=== PATIENT | female | born 1930 | race Caucasian/White ===

== ENCOUNTER 2019-07-15 16:30 | Observation (INO) ==
[2019-07-15 17:43] LABS: BASO# 0.01 X1000 (0.0-0.2); BASO% 0.2 % (0.0-0.8); EOS% 5.7 % (0.0-10.0); HEMATOCRIT 28.8 % (37.0-47.0); HEMOGLOBIN 8.9 g/dL (12.0-16.0); IMM GRAN# 0.08 X1000 (0.0-0.04); IMM GRAN% 1.5 % (0.0-0.5); LYMPH# 1.62 X1000 (1.2-3.4); MCH 30.4 PG (27-31); MCHC 30.9 g/dL (33-37); MCV 98.3 FL (81-99); MONO# 0.59 X1000 (0.11-0.59); MONO% 11.3 % (1.7-9.3); NEUT# 2.63 X1000 (1.4-6.5); NEUT% 50.3 % (42.2-75.2); PLT 277 X1000 (130-400); RBC 2.93 XMIL (4.2-5.4); RDW 14.2 % (11.5-14.5); WBC 5.23 X1000 (4.8-10.8)
[2019-07-15 17:47] LABS: URINE SOURCE CATH
--- NOTE | 2019-07-15 17:52 | Diag Imaging Result Doc PS360 ---
EXAM: CHEST-PORTABLE - 07/15/2019 HISTORY: confusion TECHNIQUE: Portable chest COMPARISON: 08/25/2018 FINDINGS: Heart size is normal. Inspiration is mildly shallow. There are stable left lower lung granuloma and calcified left hilar lymph nodes from old granulomatous disease. Lungs otherwise appear clear. IMPRESSION: Mildly shallow inspiration. No other evidence of acute disease. Electronically signed by Qamar Cruz 07/15/2019 5:49 PM
[2019-07-15 17:54] LABS: BILIRUBIN URINE NEGATIVE (NEGATIVE); BLOOD URINE NEGATIVE (NEGATIVE); CLARITY CLEAR (CLEAR); COLOR YELLOW; GLUCOSE URINE NEGATIVE (NEGATIVE); KETONE URINE 1+(Small) mg/dL (NEGATIVE); LEUKOCYTES URINE NEGATIVE (NEGATIVE); NITRITE URINE NEGATIVE (NEGATIVE); PROTEIN URINE NEGATIVE (NEGATIVE); UROBILINOGEN URINE NORMAL
[2019-07-15 17:54] LABS: AGAP 13; ALBUMIN 3.8 g/dL (3.5-5.0); ALKALINE PHOSPHATASE 55 U/L (32-104); BUN 14 mg/dL (8-22); CALCIUM 9.1 mg/dL (8.8-10.2); CHLORIDE 109 mmol/L (98-107); COSMO 279; CREATININE 1.2 mg/dL (0.5-0.9); ESTIMATED GFR 42; GLUCOSE 85 mg/dL (70-104); GOT 23 U/L (10-30); GPT 16 U/L (10-36); SODIUM 140 mmol/L (136-145); TCO2 19 mmol/L (25-35); TOTAL BILIRUBIN < 0.15 mg/dL (0.20-1.00); TOTAL PROTEIN 6.1 g/dL (6.3-8.3)
--- NOTE | 2019-07-15 18:34 | PROVIDER DOCUMENTATION ---
This chart was entered by Liz Santana Scribe, acting as scribe for Clyde Byrd MD. HPI-General Adult - General Chief Complaint: Abnormal Lab[s] Stated Complaint: Renal Failure from [facility] Time Seen by Provider: 07/15/19 16:49 Source: patient, EMS Allergies/Adverse Reactions: Patient Allergies Allergy/AdvReac Type Severity Reaction Status Date / Time nitrofurantoin Allergy Unknown Verified 01/16/18 10:12 [From Macrobid] cephalexin [From Keflex] AdvReac Intermediate NAUSEA Verified 01/16/18 10:12 citalopram AdvReac Unknown Verified 12/30/18 14:09 niacin AdvReac Unknown Verified 12/30/18 14:09 NSAIDS (Non-Steroidal AdvReac Unknown Verified 12/30/18 14:09 Anti-Inflamma simvastatin [From Zocor] AdvReac Unknown Verified 12/30/18 14:09 Home Medications: Home Medication List Medication Instructions Recorded Confirmed Last Taken Type Acetaminophen with Codeine 1 ea PO Q6HR PRN #14 tab 01/16/18 Unknown Rx [Tylenol with Codeine #3] Amlodipine Besylate/Benazepril 1 cap PO DAILY 01/16/18 01/16/18 Unknown History [Amlodipine-Benazepril 10-20 mg] Donepezil HCl 10 mg PO QHS 01/16/18 01/16/18 Unknown History Gemfibrozil [Lopid] 600 mg PO BID 01/16/18 01/16/18 Unknown History Memantine HCl [Namenda] 10 mg PO BID 01/16/18 01/16/18 Unknown History Pravastatin Sodium 80 mg PO DAILY 01/16/18 01/16/18 Unknown History Quetiapine Fumarate 50 mg PO BID 01/16/18 01/16/18 Unknown History - History of Present Illness -Gen Adult Nature of Presenting Problems: 89 yowf presents to the ed with c/o renal failure. pt had labs drawn at [facility] and came back abnormal so pt was sent to ed. pt on exam is pleasantly confused and denies any pain or issue. pt on exam is in no distress and nontoxic in appearance Location of Pain/Injury: reports: none Pain Radiation: reports: no radiation Quality of Pain: reports: none Severity: reports: mild Onset/Duration: reports: unsure Timing: reports: still present Context/Activities at Onset: reports: light activity Modifying Factors: improves with: nothing Associated Symptoms: reports: denies symptoms Similar Symptoms Previously?: No Recently seen or treated by another doctor?: No Review of Systems - Adult - REVIEW OF SYSTEMS - ADULT ROS:: limited per condition (pt is confused but pleasant has hx of alzheimers) Constitutional: denies: chills, fever Eyes: reports: no symptoms reported Ears, Nose, Mouth & Throat: reports: no symptoms reported Cardiovascular: denies: chest pain, palpitations Respiratory: denies: cough, shortness of breath, wheezing Gastrointestinal: denies: abdominal pain, diarrhea, nausea, vomiting Genitourinary: reports: see HPI, other (abnormal kidney function) Musculoskeletal: denies: back pain, neck pain Integumentary: reports: no symptoms reported Neurological: denies: dizziness/vertigo, headache/migraines Psychiatric: reports: no symptoms reported Endocrine: reports: no symptoms reported Hematologic/Lymphatic: reports: no symptoms reported Allergic/Immunologic: reports: no symptoms reported All Other Systems: Reviewed and Negative Past History - Adult - PAST MEDICAL HISTORY-ADULT Review of Records: reports: Old Records Reviewed, Nursing Assessment Review, Medications Reviewed, Social history reviewed & non-contributory. Major Childhood Illnesses: reports: denies history Cardiovascular: reports: denies history Respiratory: reports: denies history Gastrointestinal: reports: denies history Obstetrical/Gynecological: reports: denies history Genitourinary: reports: kidney disease Musculoskeletal: reports: denies history Hand Dominance: Right Handed Neurological: reports: Alzheimer's, dementia Psychiatric: reports: denies history Endocrine/Immune: reports: denies history Other Conditions: reports: denies history - PRIOR SURGERIES/PROCEDURES Surgical/Procedure History: reports: reviewed, not pertinent - IMMUNIZATION STATUS Childhood Immunizations: See Nurse Assessment Flu Vaccine: See Nurse Assessment - FAMILY HISTORY Family History: reviewed, not pertinent - SOCIAL HISTORY Smoking: denies Substance Use: denies Living Situation: care facility ([facility]) Physical Exam-General - PHYSICAL EXAM-ADULT Initial Vital Signs Reviewed: Yes - CONSTITUTIONAL General Appearance: appears well, alert, no apparent distress (pt denies any pain or issue on exam. pt is alzheimers), obese - EYES Eyes: PERRL/EOMI, pink conjunctivae - HEAD, EARS, NOSE, MOUTH & THROAT HENMT: moist mucous membranes, normal ENT inspection - NECK Neck: non-tender, full range of motion, supple, normal inspection - RESPIRATORY Respiratory: chest non-tender, lungs clear, normal breath sounds - CARDIOVASCULAR Cardiovascular: normal peripheral pulses, regular rate, rhythm - CHEST (BREASTS) Chest/Breast: deferred - GASTROINTESTINAL (ABDOMEN) Abdominal Exam: normal bowel sounds, non tender, soft - GENITOURINARY Female Genitalia/Pelvic Exam: deferred Rectal Exam: deferred Hemoccult Exam: deferred - LYMPHATIC Lymphatic: no adenopathy - MUSCULOSKELETAL Back Exam: no CVA tenderness, no vertebral tenderness Extremity: normal capillary refill, pelvis stable, swelling (BLE edema) - SKIN Integumentary: normal color, normal turgor, warm/dry - PSYCHIATRIC Psych/Mental Status: normal mood/affect, other (pt is confused to why she is currently at the hosp but knows she is in the er.) Progress - PLAN OF CARE/RESULTS Progress/Plan/Lab Results: Vital Signs - 8 hr 07/15/19 16:38 07/15/19 16:43 Temperature 97.8 F 97.4 F L Pulse Rate 72 69 Respiratory Rate 18 18 Blood Pressure 138/75 138/75 O2 Sat by Pulse Oximetry 99 97 Orders Category Date Time Status Saline Loc NOW Care 07/15/19 16:45 Active CHEST-PORTABLE [RAD] Stat Exams 07/15/19 16:45 Ordered CBC WITH ELECTRONIC DIFF [HEME] Stat Lab 07/15/19 16:44 Uncollected COMPREHENSIVE METABOLIC PANEL [CHEM] Stat Lab 07/15/19 16:[address] [URINALYSIS] Stat Lab 07/15/19 16:43 Uncollected Generalized Adult Illness >60 Stat Oth 07/15/19 16:43 Ordered EKG [EKG] Stat Ther 07/15/19 16:44 Ordered Result Diagrams: 07/15/19 17:06 07/15/19 17:06 - REASSESSMENT Reassessment #1 Time Reassessed: 17:24 Status: unchanged - XRAY 1 XRAY: Bilateral XRAY Study: Chest Impression: See EMR Report Departure - Departure Date of Disposition Decision: 07/15/19 Time of Disposition Decision: 18:32 DIAGNOSIS: Sedated, HBP (high blood pressure), Alzheimers disease, Polypharmacy Disposition: ADMITTED INPATIENT 09 Certified Medical Emergency: Emergent Condition: Stable Referrals and Follow-Ups: None,PCP [Primary Care Provider] - - Critical Care Note This patient required my direct & personal management of CC.: No Attestation - Physician/ FREEDOM Attestation Patient care was provided by Advanced Practice Provider:: No The physician spent face to face time with patient:: Yes Advanced Practice Provider documentation review:: Supervising physician onsite and consulted in the evaluation and care of this patient. The physician did have a face to face encounter with the patient. This chart was documented by the indicated scribe, (Liz Santana Scribe) and accurately reflects the services I performed and decisions made by me, Clyde Byrd MD, as attested by the provider's signature.
[2019-07-16] MEDS ORDERED: NORCO-7.5 PO PRN (08:29)
[2019-07-16] MEDS ORDERED: PRILOSEC PO SCH (08:45)
[2019-07-16] MEDS ORDERED: AMLODIPINE BESYLATE PO SCH (09:00)
[2019-07-16] MEDS ORDERED: ASPIRIN PO SCH (09:00)
[2019-07-16] MEDS ORDERED: [UNRECOGNIZED DRUG - OTHER] PO SCH (09:00)
[2019-07-16] MEDS ORDERED: LOTENSIN PO SCH (09:00)
[2019-07-16] MEDS ORDERED: BENAZEPRIL PO SCH (09:00)
[2019-07-16] MEDS ORDERED: NAMENDA PO SCH (09:00)
[2019-07-16] MEDS ORDERED: NORVASC PO SCH (09:00)
[2019-07-16] MEDS ORDERED: ARICEPT PO SCH (09:00)
[2019-07-16] MEDS ORDERED: PROZAC PO SCH (09:00)
[2019-07-16 09:12] LABS: BASO# 0.03 X1000 (0.0-0.2); BASO% 0.6 % (0.0-0.8); EOS# 0.26 X1000 (0.0-0.7); EOS% 5.4 % (0.0-10.0); HEMATOCRIT 27.8 % (37.0-47.0); HEMOGLOBIN 8.7 g/dL (12.0-16.0); IMM GRAN# 0.13 X1000 (0.0-0.04); IMM GRAN% 2.7 % (0.0-0.5); LYMPH# 1.31 X1000 (1.2-3.4); MCH 30.6 PG (27-31); MCHC 31.3 g/dL (33-37); MCV 97.9 FL (81-99); MONO# 0.57 X1000 (0.11-0.59); MONO% 11.8 % (1.7-9.3); MPV 9.8 FL (7.4-10.4); NEUT# 2.55 X1000 (1.4-6.5); NEUT% 52.5 % (42.2-75.2); PLT 299 X1000 (130-400); RBC 2.84 XMIL (4.2-5.4); RDW 13.9 % (11.5-14.5); WBC 4.85 X1000 (4.8-10.8)
[2019-07-16 09:16] LABS: CALCIUM 8.9 mg/dL (8.8-10.2); POTASSIUM 3.6 mmol/L (3.5-5.1)
[2019-07-16] MEDS: MILK OF MAGNESIA PO SCH ×2 (09:28→10:03)
[2019-07-16] MEDS: LOPID PO SCH ×2 (09:49→09:54)
[2019-07-16 11:17] VITALS: BP 145/84
--- NOTE | 2019-07-16 11:47 | HISTORY AND PHYSICAL ---
CONTINUATION REPORT PHYSICAL EXAMINATION: VITAL SIGNS: On arrival, she had a temperature of 97.8 degrees, pulse 72, respirations 18, blood pressure 138/75, saturating 99% on room air. GENERAL: This is an 89-year-old female who is lying in the bed and is alert and oriented to person only. HEENT: Normocephalic, atraumatic. Normal ENT inspection. Oropharynx and nares are clear. EYES: Pupils are equal, round, reactive to light and accommodation. Extraocular movements are intact. NECK: Normal inspection, normal range of motion. LUNGS: Clear to auscultation. Equal lung expansion and chest wall movement. HEART: Regular rate and rhythm. No murmurs, rubs, or gallops. ABDOMEN: Soft, nontender, nondistended. Bowel sounds are present x4 quadrants. MUSCULOSKELETAL: She has 5/5 strength x4 extremities. NEUROLOGICAL: The cranial nerves 2-12 are grossly intact. ASSESSMENT: 1. Generalized weakness. 2. Alzheimer's. 3. Hypertension, history of. 4. Chronic kidney disease, stable. PLAN: She was admitted, placed on healthy heart diet. We will get a physical therapy evaluation. Continue her home medications. I certainly think that she can be discharged back to the longterm after seen by attending if he is in agreement. No major findings have been found on this patient to warrant continuation in the hospital at this time, but that decision again will be made by attending. Dictated by CLEMENT Diaz for Daryl Johns MD cc: CLEMENT Diaz MD
--- NOTE | 2019-07-16 13:36 | DISCHARGE SUMMARY ---
ADMISSION DATE: 07/15/2019 DISCHARGE DATE: 07/16/2019 ADMISSION DIAGNOSES: 1. Generalized weakness. 2. Alzheimer's. 3. Hypertension, history of. 4. Chronic kidney disease, stable. DISCHARGE DIAGNOSES: 1. Generalized weakness. 2. Alzheimer's. 3. Hypertension, history of. 4. Chronic kidney disease, stable. SUMMARY OF FINDINGS: This is an 89-year-old female who presented to [facility] ER after she was sent by [facility] for some abnormal labs. Had apparently been in the hospital at [place] last week and now having generalized weakness. Daughter stated that it was difficult to wake her up to feed her. She is currently alert and oriented to person only. Her laboratory data was really unremarkable. Creatinine was 1.2, the same as it was a year ago. Today, it is 1.0. I did have physical therapy to do an evaluation on her. She ambulated with a rolling walker with some verbal cues and did well. She is eating currently her lunch and it is felt that she can safely be discharged back to [facility] with no changes in medications and continue all previous orders. DISCHARGE MEDICATIONS: Aspirin 81 mg p.o. daily, atorvastatin 20 mg p.o. daily, donepezil 10 mg p.o. daily, gemfibrozil 600 mg p.o. b.i.d., Home 7.5 one p.o. q.6 hours p.r.n., milk of magnesia 60 mL p.o. daily, memantine 10 mg p.o. b.i.d., omeprazole 40 mg p.o. daily, quetiapine 100 mg p.o. at bedtime, amlodipine/benazepril 10/20 one p.o. daily, vitamin B12 with 1000 mcg injection q.30 days, salicylic acid corn remover topically daily. FOLLOWUP: She is to follow up with intermediate facility physician for any further issues and return to the emergency room as needed. TIME SPENT: This is a 35 minute discharge. Dictated by CLEMENT Diaz for Daryl Johns MD cc: CLEMENT Diaz MD
[2019-07-16] MEDS ORDERED: SEROQUEL PO SCH (21:00)
[2019-07-16] MEDS ORDERED: LIPITOR PO SCH (21:00)
--- NOTE | 2019-07-17 04:27 | HISTORY AND PHYSICAL ---
PRIMARY CARE PHYSICIAN: Facility physician at [facility]. CHIEF COMPLAINT: Was sent to the ER for abnormal labs from [facility]. HISTORY OF PRESENTING ILLNESS: This is an 89-year-old, female who presented to [facility] ER from [facility] with complaints of some abnormal labs from their facility. When she arrived here, her labs were really at her baseline. Her creatinine was 1.2 but it was the same as it was on when it was 1.2. The daughter is at the bedside and states she was in the hospital at [facility] last week for some generalized weakness and was sent back to the snf. Then, she could not get her to wake up to eat. She was very lethargic, was unable to ambulate herself independently due to her weakness, so she was placed in the hospital now for further evaluation and treatment for observation. PAST MEDICAL HISTORY: Alzheimer's, hypertension, chronic kidney disease, and hyperlipidemia. PAST SURGICAL HISTORY: Carpal tunnel and cataract. FAMILY HISTORY: Reviewed and noncontributory. SOCIAL HISTORY: She currently resides at [facility]. Denies any tobacco, alcohol, or illicit drug use. ALLERGIES: Macrobid, Keflex, citalopram, niacin, NSAIDs, and simvastatin. HOME MEDICATIONS: She takes cyanocobalamin 1000 mcg injection q.30 days (will be held), metronidazole 500 mg IV every 8 was held, and a salicylic acid corn remover patch was held. We will continue her amlodipine/benazepril 10/20 one p.o. daily, aspirin 81 mg p.o. daily, atorvastatin 20 mg p.o. daily, donepezil 10 mg p.o. daily, gemfibrozil 600 mg p.o. b.i.d., hydrocodone 7.5 one p.o. q.6 hours p.r.n., milk of magnesia 60 mL p.o. daily, Namenda 10 mg p.o. b.i.d., omeprazole 40 mg p.o. daily, and quetiapine fumarate 100 mg p.o. at bedtime. LABORATORY DATA: Showed a white blood cell count of 5.23, hemoglobin 8.9, hematocrit 28.8, platelets 277,000. Sodium 140, potassium 4, chloride 109, CO2 of 19, BUN of 14, creatinine 1.2, glucose 85. Urinalysis was negative. Chest x-ray was mildly shallow inspiration but no other evidence of acute disease. REVIEW OF SYSTEMS: Unable to obtain from patient due to her confusion as she is alert and oriented to person only. PHYSICAL EXAMINATION: VITAL SIGNS: On arrival, she had a temperature of 97.8 degrees, pulse 72, respirations 18, blood pressure 138/75, saturating 99% on room air. GENERAL: This is an 89-year-old, female lying in the bed, is alert and oriented to person only. HEENT: Normocephalic, atraumatic. Normal ENT inspection. Oropharynx and nares are clear. EYES: Pupils are equal, round, reactive to light and accommodation. Extraocular movements are intact. NECK: Normal inspection, normal range of motion. LUNGS: Clear to auscultation. Equal lung expansion and chest wall movement. HEART: Regular rate and rhythm. No murmurs, rubs, or gallops. ABDOMEN: Soft, nontender, nondistended. Bowel sounds are present x4 quadrants. MUSCULOSKELETAL: She has 5/5 strength x4 extremities. NEUROLOGICAL: The cranial nerves 2-12 are grossly intact. ASSESSMENT: 1. Generalized weakness. 2. Alzheimer's. 3. Hypertension, history of. 4. Chronic kidney disease, stable. PLAN: She was admitted, placed on healthy heart diet. We will get a physical therapy evaluation. Continue her home medications. I certainly think that she can be discharged back to the snf after seen by attending if he is in agreement. No major findings have been found on this patient to warrant continuation in the hospital at this time, but that decision again will be made by attending. Dictated by CLEMENT Diaz for Daryl Johns MD cc: CLEMENT Diaz MD
== END 2019-07-16 14:11 ==
LOC: P.ED 16:30 → P.MEDSURG 16:30
PROVIDERS: ATTEND Internal Medicine